=== PATIENT | male | born 1965 | race Caucasian/White ===

== ENCOUNTER → 2020-09-17 | Outpatient (CLI) | payer BC ==
[~2020-09-17] MED LIST: CIPRO500 MG PO; FLAGYL500 MG PO; NORCO 7.5-3251 EACH PO; ZOFRAN4 MG PO
== END ==
LOC: KOH-I 09-06 11:00
DX: K57.92 Diverticulitis of intestine, part unspecified, without perforation or abscess without bleeding (principal); K76.0 Fatty (change of) liver, not elsewhere classified; K86.89 Other specified diseases of pancreas
CPT/HCPCS: 76705

== ENCOUNTER → 2020-11-30 | Outpatient (CLI) | payer BC | LOC: NM 11-02 12:44 | DX: K57.92 Diverticulitis of intestine, part unspecified, without perforation or abscess without bleeding (principal); K76.0 Fatty (change of) liver, not elsewhere classified; R10.11 Right upper quadrant pain; R93.2 Abnormal findings on diagnostic imaging of liver and biliary tract | CPT/HCPCS: 78226; A9537 ==